=== PATIENT | female | born 1945 | race Caucasian/White ===

== ENCOUNTER 2019-03-02 10:29 | Outpatient (CLI) | payer MEDICARE, OTHER ==
--- NOTE | 2019-03-02 12:03 | RAD ---
LUMBAR SPINE 2 VIEWS: HISTORY: Postop. COMPARISON: None. FINDINGS: There is a unilateral left posterior spinal fusion at L4-L5 with L5 being a lumbosacral transitional vertebra. There is 3 mm L4 over L5 anterolisthesis. IMPRESSION: Satisfactory postoperative appearance. POS: CET
== END 2019-03-02 10:30 | disposition home or self-care (01) ==
LOC: TBSIIMAG 10:29
PROVIDERS: ATTEND Neurological Surgery
DX: M54.16 Radiculopathy, lumbar region (principal); Z98.890 Other specified postprocedural states
CPT/HCPCS: 72100